=== PATIENT | male | born 1955 | race Caucasian/White ===

== ENCOUNTER 2016-09-09 20:56 | Emergency (ER) | payer OTHER ==
[~2016-09-09] VITALS: Ht 182.9 cm; Wt 95.3 kg
[~2016-09-09 20:56] MED LIST: AUGMENTIN 875-1 EACH PO; BACTRIM 400-801 EACH PO; FLAGYL500 MG PO; IBUPROFEN800 M1 PO; LEVOTHYROXINE25 MCG; PERCOCET 5-3251 EACH PO
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
[2016-09-09] MEDS ORDERED: PERCOCET 7.5-31 EACH PO (21:37)
[2016-09-09] MEDS ORDERED: LEVOTHYROXINE200 MC1 PO (21:37)
[2016-09-09] MEDS ORDERED: KETOROLAC TROME10 M1 PO (21:51)
[2016-09-09] MEDS ORDERED: CYCLOBENZAPRINE10 M1 PO (21:51)
[2016-09-09 21:56] VITALS: BP 112/70
== END 2016-09-09 22:00 ==
LOC: ERH 20:56
DX: S16.1XXA Strain of muscle, fascia and tendon at neck level, initial encounter (principal); V49.40XA Driver injured in collision with unspecified motor vehicles in traffic accident, initial encounter; Y92.410 Unspecified street and highway as the place of occurrence of the external cause
CPT/HCPCS: 96372; J1885

== ENCOUNTER → 2017-05-16 | Day surgery (SDC) | payer OTHER ==
[~2017-05-16] VITALS: Ht 182.9 cm; Wt 97.5 kg
[~2017-05-16] MED LIST changes: +CYCLOBENZAPRINE10 M1 PO; +DITROPAN XL10 M1 PO; +KETOROLAC TROME10 M1 PO; +LEVOTHYROXINE200 MC1 PO; +PERCOCET 10-321 EACH PO; +PERCOCET 7.5-31 EACH PO
--- NOTE | 2017-05-16 17:29 | Operative Report ---
Operative/Inv Procedure Report Surgery Date: 05/16/17 Name of Procedure: 1) Right shoulder arthroscopic rotator cuff repair. 2) Right shoulder open biceps subpectoral tenodesis (separate incision). 3) Right shoulder arthroscopic distal clavicle excision. 4) Right shoulder subacromial decompression. Pre-Operative Diagnosis: 1) Right shoulder full-thickness rotator cuff tear. 2) Moderate grade partial tearing right shoulder intra-articular biceps tendon. 3) Acromioclavicular joint overgrowth secondary to osteoarthritis. 4) Right shoulder subacromial impingement. Post-Operative Diagnosis: Same. Estimated Blood Loss: scant Surgeon/Social Media Manager: Lula ORTIZ,Librado / CARI Sagastume Anesthesia: laryngeal mask airway, block Monitors: EKG/blood pressure/oxygen saturation. IV Fluids: Lactated Ringer's. Implants: Arthrex 8 mm diameter pitchfork corkscrew biceps tenodesis anchor 1. Urine Output: None. Drains: None. Specimens: Torn proximal biceps tendon sent to pathology for documentation. Microbiology: None. Tourniquet: None. Complications: None known. Condition: Stable. Operative Indication: The patient is a 61-year-old male [facility] who was sent to me with a relatively long-standing history of right shoulder pain and developing weakness. Symptoms and clinical findings over time were consistent with a chronic massive rotator cuff tear. We attempted conservative management but this was felt by the patient to be unsatisfactory. By this time we did get an MRI of the shoulder which did show a massive chronic rotator cuff tear with retraction measuring roughly 4 x 4 centimeters AP/transverse with some associated fatty infiltration and associated muscle atrophy. With ongoing symptoms not responding to conservative management including medications and modalities and injection therapy along with physical therapy and home exercises the patient very strongly wanted to do something if possible about his right shoulder condition. With respect to the rotator cuff tear we did discuss the fact that this is a massive tear which would by definition make mobilization and successful repair anatomically down to the footprint difficult if not impossible. We did discuss the possibility of trying to close the rotator cuff tear down at least partially with the hopes of providing some improvement in symptoms and function for the right shoulder. With respect to the proximal biceps tendon pathology we did discuss performing a simple biceps tenotomy versus tenotomy followed by a mini open subpectoral biceps tenodesis. The patient did express his preference to go with a biceps tenodesis as opposed to tenotomy. The patient does understand the reasonably high likelihood that rotator cuff repair surgery will ultimately proved to be unsuccessful either due to inability to repair the cuff tear or due to failure after repair of the cuff tear. All the patient's questions were answered at length. He did ultimately decide that he did want to move forward with surgical intervention and surgical consent was obtained. Operative/Procedure Note Note: The patient was brought to the operating room and placed on the operative table in supine position. General anesthesia was induced by the anesthesia team. A dose of IV antibiotics were given for infection prophylaxis. Both legs were placed in to calf compression sleeves to minimize venous pooling and hopefully cutdown a risk of lower extremity blood clot formation of propagation. All bony prominences were then well-padded. We next secured the patient's head to the well-padded head teacher attachment to the shoulder component of the OR table. The patient was then raised in 2 standard beach chair position and re-padded and repositioned until we were satisfied with how things look. The shoulder was put through a passive range of motion with the patient under general anesthesia. We appreciated excellent passive range of motion without crepitus or instability. The patient's right upper extremity was then prepped and draped in the usual sterile fashion. The skin about the right shoulder girdle was marked for planned arthroscopic portal wounds as well as for the planned subpectoral biceps tenodesis portion of the procedure. All bony landmarks in the area also marked out. We next created a standard posterior glenohumeral joint arthroscopic viewing portal. The arthroscope was introduced into the joint and diagnostic arthroscopy of the joint ensued. The glenohumeral articular cartilage showed glenoid cartilage that was in good condition. The humeral head articular cartilage did show some thinning but no significant fissuring or full-thickness chondral lesions. The glenoid labral tissue showed some marginal fraying but no obvious detachment. The axillary pouch was entered and showed no loose bodies. The proximal biceps tendon was identified and examined and found to have moderate grade fraying and tearing of the intra-articular portion of the biceps tendon. We did therefore elected to perform a biceps tenotomy and to subsequent to perform a mini open subpectoral biceps tenodesis. Examination of the general environment of the shoulder did show moderate diffuse synovitis. The rotator cuff tear was a massive tear and essentially with looking from below we saw virtually no rotator cuff tissue above us and we will looking directly up at the acromial process and the acromioclavicular joint. We next created a mid anterior arthroscopic working portal. This allowed us to bring in a combination of motorized shaver and tissue punches and ablation wands. We shrunk down some inflamed synovial tissue and we did achieve better hemostasis with the coagulation wand. We used scissor punches to take down the medial attachment site of the intra-articular portion of the proximal biceps tendon. After that we debrided the stump down to the superior glenoid attachment site. We debrided some of the detached intra-articular proximal biceps tendon with a shaver. We flexed and extended the elbow which pulled the biceps tendon towards the bicipital groove. We next used a probe pushing from above to push the proximal biceps tendon into the upper bicipital tendon sheath and out of the immediate shoulder. We next repositioned the arthroscope above the rotator cuff which did still have some posterior infraspinatus rotator cuff tissue that was still intact. Examination of the cuff from above showed a bald humeral head. For the most part we really could not convincingly find supercenter is rotator cuff tissue. This appeared to be a combination of posterior and medial retraction of the supraspinous rotator cuff tendon. We next created a lateral arthroscopic working portal using outside in needle localization technique. After that was performed we took down soft tissue remnants on the undersurface of the acromion and then we performed an undersurface acromioplasty of the anterior acromion using a high-speed shaver acting as a bur working in cookie cutter fashion lateral to medial and anterior to posterior until we were satisfied with the decompression. We next performed a distal clavicle excision using motorized shaver and tissue ablation wand for coagulation taking off roughly 8-10 mm of distal clavicle to widen the acromioclavicular joint. We now turned our attention towards the attempted rotator cuff repair. We performed soft tissue releases and mobilization as best as possible but we could not mobilize the rotator cuff remnant adequately to allow for a successful repair back down to bone. We did still; however elect to close down the overall size of the rotator cuff tear by placing multiple arthroscopic convergence sutures which were tied with arthroscopic knot tying technique. This did close down the rotator cuff tear size by about 50-60%. Nevertheless we could not advance the remnant free margins back to bone for repair. Of note we did already know that there was some fatty infiltration and muscle atrophy which were felt to alter the tissue properties and we therefore decided that there was nothing else that we could do for the rotator cuff tear other than for margin convergence to close down the size of the tear. We irrigated out the subacromial space and then evacuated as much arthroscopic solution as possible and the arthroscopic instrumentation was removed. We now turned our attention towards performance of the open subpectoral biceps tenodesis. We marked the skin at the anteromedial upper arm by referencing the medial border of the humeral shaft and referencing the traversing undersurface of the pectoralis tendon. After the skin was marked a skin incision was created and sharp dissection was continued down through the skin and subcutaneous tissues. Hemostasis was achieved using electrocautery. After that dissection was rather blunt. A finger was hooked under the pectoralis tendon and up along the biceps muscle belly to identify the proximal biceps tendon in the bicipital tendon sheath. By hooking a finger around the detached proximal biceps tendon, the proximal biceps tendon was able to be retrieved from the wound. We placed blunt tipped wide Hohmann retractors laterally and medially to provide better exposure by retracting the pectoralis and deltoid laterally and the conjoined tendon and soft tissues medially. We now had good visualization of the lower aspect of the bicipital groove. The lower aspect of the bicipital groove was now marked with electrocautery for localization of placement of the hole in the bone to be made with a reamer for tenodesis of the proximal biceps tendon. We elected to go with an 8 mm diameter Arthrex pitchfork corkscrew biceps tenodesis anchor. With that in mind we reamed with an 8.5 mm diameter reamer through the anterior cortex of the upper humeral shaft at the previously marked lower aspect of the bicipital groove. The reamer was removed manually without power to try to minimize distorting the reamer hole created with the reamer. We next advanced the musculotendinous portion of the proximal biceps tendon up to the reamed hole and then we captured the proximal biceps tendon with the pitchfork component of the biceps tenodesis corkscrew anchor and push that into the reamed hole to advance the tendon into the bone. We next advanced the corkscrew component of the anchor manually until it was well seated within the bone. This did secure the proximal biceps tendon very nicely into the bone. All excess proximal biceps tendon tissue outside of the tenodesis site was trimmed off sharply and passed off the field to be sent to pathology for documentation. The proximal biceps tendon was probed and found to be securely tenodesed. The elbow was flexed and extended in the proximal biceps tendon was still well tenodesed. Our attention was now directed towards closure. The biceps tenodesis wound was copiously irrigated multiple times with saline. The soft tissues were allowed to fall into loose approximation in the normal position. The fascial layer was not closed. The soft tissue repair consisted of placement of 2-0 undyed Vicryl suture material placed in interrupted buried fashion in the superficial subcutaneous tissues. The skin margins were then approximated using 3-0 Prolene placed in running subcuticular fashion. The wound was washed and dried. Mastisol was applied about this wound. The subcuticular skin repair was then augmented with Steri-Strips. The arthroscopic portal wounds created about the shoulder were repaired using 3-0 Prolene placed in interrupted simple fashion. All wounds were irrigated and washed and dried and then covered with Adaptic dressings. Sterile gauze dressings and abdominal pads were next placed and then held in place with foam tape. The right upper extremity was placed into a shoulder abduction sling for support. The patient was returned to the supine position. He was awakened from general anesthesia and then transferred to the stretcher and brought to the recovery room in stable condition having tolerated the procedure well. Findings: 1) Full-thickness retracted supercilia is rotator cuff tear: Not fully repairable to bone but cuff tear size close down with multiple convergence sutures. 2) Moderate grade partial thickness proximal biceps tendon tear. 3) Overgrowth with arthritic changes at the acromioclavicular joint. 4) Moderate-sized anterior inferior subacromial spur. Discharge Disposition: PACU
== END ==
LOC: STS 02:10
DX: M75.121 Complete rotator cuff tear or rupture of right shoulder, not specified as traumatic (principal); M19.011 Primary osteoarthritis, right shoulder; M75.41 Impingement syndrome of right shoulder; E03.9 Hypothyroidism, unspecified
CPT/HCPCS: J0131; J0690; J1071; J2250